=== PATIENT | female | born 1995 | race Caucasian/White ===

== ENCOUNTER 2017-01-08 03:35 | Emergency (ER) | payer BC ==
[~2017-01-08] VITALS: Ht 157.5 cm; Wt 46.0 kg
[2017-01-08 04:40] LABS: HEMATOCRIT. 41.6 % (36.0-48.0); HEMOGLOBIN. 13.5 g/dL (12.0-16.0); MEAN CORPUSCULAR HGB CONC 32.5 g/dL (31.0-37.0); MEAN PLATELET VOLUME 9.5 fl (7.4-10.4); PLATELET 162 x1000/uL (130-400); RED BLOOD CELL COUNT 4.84 mill/uL (4.2-5.4); RED CELL DISTRIBUTION WIDTH 12.9 % (11.6-14.6); WHITE BLOOD COUNT 11.6 x1000/uL (4.5-11.0)
[2017-01-08 04:41] LABS: DIFFERENTIAL COMMENT 1
[2017-01-08 04:44] LABS: CHLORIDE 107 mEq/L (98-107); INDEX HEMOLYSI 1 (1-3); INDEX ICTERIC 1 (1-4); INDEX LIPEMIC 1 (1-3)
[2017-01-08 04:46] LABS: HCG SCREEN NEGATIVE
[2017-01-08 04:53] LABS: ALANINE AMINOTRANSFERASE 20 IU/L (13-61); ALBUMIN 3.8 g/dL (3.4-5.0); ANION GAP 12; CALCIUM 8.2 mg/dL (8.5-10.1); CARBON DIOXIDE 26 mEq/L (21-32); UREA NITROGEN BLOOD 17 mg/dL (7-21); eGFR > 60 mL/min (>60)
[2017-01-08 04:55] VITALS: BP 101/79
[2017-01-08 07:27] LABS: PLATELET ESTIMATE NORMAL
== END 2017-01-08 05:56 | disposition home or self-care (01) ==
LOC: EDBD 03:35 → ER 03:56
DX: R55 Syncope and collapse (principal); R11.10 Vomiting, unspecified; R51 Headache; R10.9 Unspecified abdominal pain
CPT/HCPCS: 36415; 71010; 80053; 84703; 85025; 93005; 99285; Z7610